=== PATIENT | male | born 2000 | race Caucasian/White ===

== ENCOUNTER 2020-10-17 11:35 | Emergency (ER) | payer OTHER ==
[~2020-10-17] VITALS: Ht 180.3 cm; Wt 75.0 kg
[2020-10-17 11:36] VITALS: BP 121/74
--- NOTE | 2020-10-17 12:29 | REP ---
INDICATION: L elbow pain/swelling s/p fall COMPARISON: None. TECHNIQUE: Four views left elbow. FINDINGS: There appears to be a fracture of the coronoid process of the proximal ulna on the lateral view. I see no other evidence of acute fracture or dislocation. There is a joint effusion. IMPRESSION: Fracture coronoid process of the proximal ulna. Joint effusion. <Electronically signed by Casey Orellana > 10/17/20 [id number]
[2020-10-17] MEDS ORDERED: IBUP80TA PO (13:20)
== END 2020-10-17 13:40 | disposition home or self-care (01) ==
LOC: M ED 11:35
DX: S52.045A Nondisplaced fracture of coronoid process of left ulna, initial encounter for closed fracture (principal); V00.311A Fall from snowboard, initial encounter; Y92.828 Other wilderness area as the place of occurrence of the external cause; Y93.23 Activity, snow (alpine) (downhill) skiing, snowboarding, sledding, tobogganing and snow tubing; Y99.9 Unspecified external cause status; F17.200 Nicotine dependence, unspecified, uncomplicated; Z88.2 Allergy status to sulfonamides

== ENCOUNTER 2021-12-21 13:45 | Emergency (ER) | payer OTHER ==
[~2021-12-21] VITALS: Ht 180.3 cm; Wt 77.3 kg
[~2021-12-21 13:45] MED LIST: IBUP80TA PO
[2021-12-21 18:00] VITALS: BP 117/69
== END 2021-12-21 18:10 | disposition home or self-care (01) ==
LOC: M ED 13:45
DX: S80.01XA Contusion of right knee, initial encounter (principal); X58.XXXA Exposure to other specified factors, initial encounter; Y92.89 Other specified places as the place of occurrence of the external cause; Y93.9 Activity, unspecified; Y99.1 Military activity; Z88.2 Allergy status to sulfonamides

== ENCOUNTER 2021-12-22 23:30 | Emergency (ER) | payer OTHER ==
[~2021-12-22] VITALS: Ht 180.3 cm; Wt 77.3 kg
[2021-12-23 03:26] VITALS: BP 117/69
== END 2021-12-23 03:27 | disposition home or self-care (01) ==
LOC: M ED 23:30
DX: S80.11XA Contusion of right lower leg, initial encounter (principal); X58.XXXA Exposure to other specified factors, initial encounter; Y92.9 Unspecified place or not applicable; Y93.61 Activity, american tackle football; Y99.9 Unspecified external cause status; Z88.2 Allergy status to sulfonamides

== ENCOUNTER 2021-12-27 13:57 | Emergency (ER) | payer OTHER ==
[~2021-12-27] VITALS: Ht 180.3 cm; Wt 77.3 kg
[2021-12-27] MEDS ORDERED: KETOROLAC 60MG 2ML VIAL IM ONE (17:25)
[2021-12-27 19:44] VITALS: BP 118/69
== END 2021-12-27 20:13 | disposition home or self-care (01) ==
LOC: M ED 13:57
DX: S80.01XA Contusion of right knee, initial encounter (principal); M25.561 Pain in right knee; Z88.2 Allergy status to sulfonamides; Y92.9 Unspecified place or not applicable; Y93.61 Activity, american tackle football; Y99.9 Unspecified external cause status
CPT/HCPCS: 73700; 93971; 96372; 99283; J1885